=== PATIENT | male | born 1970 | race Asian ===

== ENCOUNTER 2016-06-12 18:05 | Emergency (ER) | payer OTHER ==
[~2016-06-12] VITALS: Ht 170.2 cm; Wt 68.0 kg
[2016-06-12] MEDS ORDERED: Lidocaine 1% 10mg/ml/Epi 0.005mg/ml 30ml vial INJ ONE (18:45)
[2016-06-12] MEDS ORDERED: TdaP Vaccine 0.5ml Syr IM ONE (18:45)
[2016-06-12] MEDS ORDERED: Bacitracin Oint UD TOPIC ONE (18:45)
--- NOTE | 2016-06-12 18:54 | Emergency Room Report ---
History of Present Illness General Chief Complaint: Laceration Source: Patient Present Illness HPI 45-year-old male presents emergency department complaining of laceration to the lower left lip x1 hour. Patient states that he was bleeding around his game and was turned talking to someone and accidentally walked into a pole. Patient denies loss of consciousness or headache states his only symptoms are bleeding from a small laceration on the lip. Patient states that bleeding was stopped with direct pressure however if he talks or smiles the bleeding will recur. Patient denies taking blood thinning medications. Patient states his last tetanus vaccination was more than 8 years ago. Denies CP, Palpitations, LOC, AMS , dizziness, Changes in Vision, Sensation, paresthesias, or a sudden severe headache. Allergies: Coded Allergies: IODINE (Verified Allergy, Unknown, 06/12/16) Patient History Past Medical History: see triage record Past Surgical History: none Pertinent Family History: none Reviewed Nursing Documentation: PMH: Agreed, PSxH: Agreed Nursing Documentation-PMH Past Medical History: No Stated History Review of Systems All Other Systems: negative except mentioned in HPI Physical Exam Vital Signs Date Time Temp Pulse Resp B/P Pulse Ox O2 Delivery O2 Flow Rate FiO2 06/12/16 18:21 98.6 66 18 139/87 99 Room Air Sp02 EP Interpretation: reviewed, normal General Appearance: no apparent distress, alert, GCS 15, non-toxic Head: normocephalic, other - left lower lip laceration 0.5cm , not through and through Eyes: bilateral eye PERRL, bilateral eye normal inspection ENT: hearing grossly normal, normal pharynx, no angioedema, normal voice Neck: full range of motion, supple/symm/no masses Respiratory: chest non-tender, lungs clear, normal breath sounds, speaking full sentences Cardiovascular #1: regular rate, rhythm, no edema Cardiovascular #2: 2+ radial (R), 2+ radial (L) Rectal: deferred Musculoskeletal: back normal, gait/station normal, normal range of motion, non- tender, no calf tenderness Neurologic: alert, oriented x3, responsive, motor strength/tone normal, sensory intact, speech normal Psychiatric: judgement/insight normal, memory normal, mood/affect normal, no suicidal/homicidal ideation Reflexes: 4+ bicep (R), 4+ bicep (L), 4+ tricep (R), 4+ tricep (L), 4+ knee (R) , 4+ knee (L) Skin: normal color, no rash, warm/dry, well hydrated, laceration - left lower lip laceration 0.5cm , not through and through Lymphatic: no adenopathy Procedures Laceration/Wound Repair Laceration/Wound Repair : Consent: Verbal Wound Location: face - lower left lip Wound's Depth, Shape: superficial Wound Length (cm): 0 Wound Explored: clean Irrigated w/ Saline (ccs): 200 Anesthesia: Lidocaine w/ Epi Volume Anesthetic (ccs): 2 Wound Repaired With: sutures Suture Size/Type: 6:0 Number of Sutures: 2 Layer Closure?: No Sterile Dressing Applied?: No Splint Applied?: No Sling Applied?: No Patient Tolerated: Well Complications: None Medical Decision Making PA Attestation Dr. Malhotra is my supervising Physician whom patient management has been discussed with. Diagnostic Impression: Primary Impression: Lip laceration Qualified Codes: S01.511A - Laceration without foreign body of lip, initial encounter ER Course Pt. presents to the ED c/o laceration to lower left lip. Ddx considered but are not limited to laceration, tendon injury, cellulitis, amputation Vital signs: are WNL, pt. is afebrile H&PE are most consistent with: Lip laceration approx 0.5 cm in length ORDERS: none required at this time, the diagnosis is clinical ED INTERVENTIONS: -Tetanus vaccine was administered as pt. vaccination status was unknown. - The wound was copiously irrigated with normal saline, and explored for foreign body for which no FB was found. - pt. is anesthetized with 1%lidocaine w. epi. - The wound was approximated and closed using 2 interrupted 6.0Prolene sutures. -Bacitracin is applied Discussed with patient: That we make every effort to approximate the laceration as best as we can so that scarring will be as cosmetically pleasing as possible with our limited cosmetic skill set in the Emergency dept. Regardless of our best efforts there will be scarring after laceration repair. The extent of scarring is unknown at this time. DISCHARGE: At this time pt. is stable for d/c to home. Will provide printed patient care instructions, and any necessary prescriptions. Care plan and follow up instructions have been discussed with the patient prior to discharge. Last Vital Signs Date Time Temp Pulse Resp B/P Pulse Ox O2 Delivery O2 Flow Rate FiO2 06/12/16 18:21 98.6 66 18 139/87 99 Room Air Disposition: HOME, SELF-CARE Condition: Stable Scripts Bacitracin Zinc/Polymyx B Sulf (Double Antibiotic Ointment) 28.4 Gm Oint...g. 1 APPLIC TP BID, #28.4 GM Prov: Nitza Patel 06/12/16 Patient Instructions: Facial Laceration Additional Instructions: Take medications as directed. Follow up with PCP in 3-5 days Return sooner to ED if new symptoms occur, or current symptoms become worse. Nitza Patel Jun 12, 2016 18:54
[2016-06-12] MEDS ORDERED: DOUBLE ANTIBI28.4 GM TP (18:55)
[2016-06-12 19:45] VITALS: BP 141/84
[2016-06-12 19:46] VITALS: BP 139/87
== END 2016-06-12 19:47 | disposition home or self-care (01) ==
LOC: EMR 18:50
DX: S01.511A Laceration without foreign body of lip, initial encounter (principal); W22.8XXA Striking against or struck by other objects, initial encounter; Y92.89 Other specified places as the place of occurrence of the external cause; Z23 Encounter for immunization
CPT/HCPCS: 90471; 90715

== ENCOUNTER 2016-06-21 20:47 | Emergency (ER) | payer OTHER ==
[~2016-06-21] VITALS: Ht 170.2 cm; Wt 71.7 kg
[~2016-06-21 20:47] MED LIST: DOUBLE ANTIBI28.4 GM TP
[2016-06-21 21:42] VITALS: BP 118/79
[2016-06-21 22:32] VITALS: BP 118/79
--- NOTE | 2016-06-22 05:24 | Emergency Room Report ---
History of Present Illness General Chief Complaint: Wound Recheck/Suture Removal Source: Patient Present Illness HPI Patient presents for suture removal of the left lower lip this occurred on June 12 He feels that the area has been healing well Denies any pain Denies any discharge Denies any separation of the laceration Denies any fevers or chills Allergies: Coded Allergies: IODINE (Verified Allergy, Unknown, 06/12/16) Patient History Past Medical History: see triage record Pertinent Family History: none Reviewed Nursing Documentation: PMH: Agreed, PSxH: Agreed Nursing Documentation-PMH Past Medical History: No Stated History Review of Systems All Other Systems: negative except mentioned in HPI Physical Exam Vital Signs Date Time Temp Pulse Resp B/P Pulse Ox O2 Delivery O2 Flow Rate FiO2 06/21/16 21:22 97.7 71 15 114/82 97 Room Air Sp02 EP Interpretation: reviewed, normal General Appearance: well appearing, no apparent distress Head: normocephalic, atraumatic Eyes: bilateral eye EOMI, bilateral eye PERRL ENT: normal pharynx, other - [address] in the left lower lip, appears to be healing well, no dehiscence Neck: supple Musculoskeletal: normal inspection Neurologic: alert, oriented x3, responsive Skin: other - As noted above Medical Decision Making Diagnostic Impression: Primary Impression: Encounter for removal of sutures ER Course Patient had the area cleansed Two sutures were removed in the appropriate fashion Without any incidents Patient saw the procedure well Area appears to be healing appropriately in a stable for close outpatient followup Last Vital Signs Date Time Temp Pulse Resp B/P Pulse Ox O2 Delivery O2 Flow Rate FiO2 06/21/16 22:32 97.6 73 16 118/79 98 Room Air Status: improved Disposition: HOME, SELF-CARE Condition: Improved Referrals: NOT CHOSEN IPA/,REFERRING (PCP) Patient Instructions: Suture Removal, Care After Additional Instructions: Patient is provided with the discharge instructions notified to follow up with primary doctor in the next 2-3 days otherwise return to the er with any worsening symptoms. RADHA SMITH D.O. Jun 22, 2016 05:24
== END 2016-06-21 22:32 | disposition home or self-care (01) ==
LOC: EMR 21:44
DX: S01.511D Laceration without foreign body of lip, subsequent encounter (principal); Z48.02 Encounter for removal of sutures; Z91.041 Radiographic dye allergy status
CPT/HCPCS: 99281